=== PATIENT | female | born 1990 | race African-American/Black ===

== ENCOUNTER 2018-08-29 15:54 | Emergency (ER) | payer OTHER ==
[2018-08-29 17:00] LABS: ADD MAN DIFF? NO
[2018-08-29 17:03] LABS: BASOPHILS % 0.5 % (0.0-2.0); EOSINOPHILS # 0.2 10^3/ul (0.0-0.5); EOSINOPHILS % 4.1 % (0.0-7.0); HEMATOCRIT 33.1 % (37.0-47.0); HEMOGLOBIN 10.7 g/dl (12.0-16.0); LYMPHOCYTES # 1.5 10^3/ul (0.8-2.9); MEAN CORPUSCULAR HGB CONC 32.3 g/dl (32.0-37.0); MEAN CORPUSCULAR VOLUME 92.7 fl (82.0-101.0); MEAN PLATELET VOLUME 9.7 fl (7.4-10.4); MONOCYTE # 0.8 10^3/ul (0.3-0.9); MONOCYTES % 14.1 % (0.0-11.0); NEUTROPHIL # 3.1 10^3/ul (1.6-7.5); NEUTROPHILS % 54.8 % (39.0-77.0); PLATELET COUNT 207 10^3/UL (140-415); RED BLOOD COUNT 3.57 10^6/ul (4.20-5.40); RED CELL DISTRIBUTION WIDTH 13.1 % (11.5-14.5)
[2018-08-29 17:03] LABS: WHITE BLOOD COUNT 5.6 10^3/ul (4.8-10.8)
[2018-08-29] MEDS: SOD CHLORIDE 0.9% 1,000 ML IV (17:11)
[2018-08-29 17:20] LABS: ALANINE AMINOTRANSFERASE 16 IU/L (13-69); ALKALINE PHOSPHATASE 36 IU/L (42-121); ANION GAP 7 (5-13); ASPARTATE AMINO TRANSFERASE 19 IU/L (15-46); BLOOD UREA NITROGEN 14 mg/dl (7-20); CALCIUM 7.5 mg/dl (8.4-10.2); CARBON DIOXIDE 22 mmol/L (21-31); CHLORIDE 114 mmol/L (97-110); CREATININE 0.46 mg/dl (0.44-1.00); Estimated GFR > 60 mL/min (>60); GLUCOSE 75 mg/dl (70-220); LIPASE 44 U/L (23-300); POTASSIUM 3.2 mmol/L (3.5-5.1); SODIUM 143 mmol/L (135-144); TOTAL PROTEIN 5.5 g/dl (6.1-8.1)
[2018-08-29 17:26] LABS: VALPROATE 39 ug/ml (50-100)
[2018-08-29 17:34] LABS: TROPONIN-I < 0.012 ng/ml (0.000-0.120)
[2018-08-29] MEDS: VALPROIC ACID 250 MG CAP PO (17:53)
== END 2018-08-29 22:40 | disposition home or self-care (01) ==
LOC: E/R 15:54
DX: G40.909 Epilepsy, unspecified, not intractable, without status epilepticus (principal)
CPT/HCPCS: 36415; 80053; 80164; 83690; 84484; 85025; 99284-25